=== PATIENT | female | born 1955 | race Caucasian/White ===

== ENCOUNTER 2016-11-24 14:52 | Observation (INO) | payer BC ==
[~2016-11-24] VITALS: Ht 152.4 cm; Wt 74.4 kg
[~2016-11-24 14:52] MED LIST: ACTIGALL300 MG PO; BUSPAR7.5 MG PO; CEPHALEXIN250 MG PO; EFFEXOR37.5 MG PO; ERGOCALCIF50000 UNIT PO; EXFORGE 10/31 TABLET PO; NORVASC10 MG PO; TRICOR145 MG PO
[2016-11-24 15:52] LABS: HEMATOCRIT 36.7 % (36.0-46.0); MCH 28.2 PG (29.0-34.0); MCHC 31.6 G/DL (30.0-36.0); MCV 89.3 FL (83-99); MEAN PLAT.VOLUME 10.4 uM^3 (9.5-12.4); PLATELET COUNT 268 K/uL (156-360); RBC DIS.WIDTH-CV 15.6 % (11.8-14.6); RBC DIS.WIDTH-SD 51.2 % (39-53); RED BLOOD COUNT 4.11 M/uL (3.80-5.20); WHITE BLOOD COUNT 8.1 K/uL (4.1-10.2)
[2016-11-24 16:04] LABS: CHLORIDE 107 mEq/L (99-109); POTASSIUM 3.3 mEq/L (3.7-5.4); SODIUM 142 mEq/L (136-147)
[2016-11-24 16:06] LABS: GLUCOSE 95 mg/dL (70-99)
[2016-11-24 16:07] LABS: ANION GAP 11 MEQ/L (2-14)
[2016-11-24 16:10] LABS: GFR ESTIMATE (CALCULATED) > 59 mL/min/
[2016-11-24 16:11] LABS: UREA NITROGEN (BUN) 16 mg/dL (9-23)
[2016-11-24 16:16] LABS: TROP-I INTERPRETATION NEGATIVE; TROPONIN-I < 0.01 ng/mL (0.0-0.30)
[2016-11-24 16:43] LABS: D-DIMER ELISA 1.51 mg/L FEU (< 0.57)
[2016-11-24] MEDS ORDERED: LORAZEPAM0.5 MG PO (20:03)
[2016-11-24] MEDS ORDERED: RANITIDINE HCL150 MG PO (20:04)
[2016-11-24] MEDS ORDERED: WELLBUTRIN75 MG PO (20:04)
[2016-11-24 20:59] LABS: INFLUENZA A VIRAL ANTIGEN NEGATIVE; INFLUENZA B VIRAL ANTIGEN NEGATIVE
[2016-11-25 00:31] VITALS: BP 137/66
[2016-11-25 01:14] LABS: TROP-I INTERPRETATION NEGATIVE; TROPONIN-I < 0.01 ng/mL (0.0-0.30)
[2016-11-25 04:09] VITALS: BP 123/62
[2016-11-25 08:08] LABS: HEMATOCRIT 30.2 % (36.0-46.0); MCH 28.4 PG (29.0-34.0); MCHC 31.5 G/DL (30.0-36.0); MCV 90.4 FL (83-99); MEAN PLAT.VOLUME 10.7 uM^3 (9.5-12.4); PLATELET COUNT 224 K/uL (156-360); RBC DIS.WIDTH-CV 15.7 % (11.8-14.6); RBC DIS.WIDTH-SD 51.9 % (39-53); RED BLOOD COUNT 3.34 M/uL (3.80-5.20); WHITE BLOOD COUNT 5.9 K/uL (4.1-10.2)
[2016-11-25 08:13] LABS: ANION GAP 8 MEQ/L (2-14); CHLORIDE 105 MEQ/L (99-109); GFR ESTIMATE (CALCULATED) > 59 mL/min/; GLUCOSE 93 mg/dL (70-99); POTASSIUM 3.7 MEQ/L (3.7-5.4); SAMPLE HEMOLYSIS CHECK 0; SAMPLE ICTERIC CHECK 0; SAMPLE LIPEMIA CHECK 0; SODIUM 139 MEQ/L (136-147); TROP-I INTERPRETATION NEGATIVE; TROPONIN-I 0.01 ng/mL (0.0-0.30); UREA NITROGEN (BUN) 14 mg/dL (9-23)
[2016-11-25 08:45] VITALS: BP 127/59
[2016-11-25 11:22] LABS: ALKALINE PHOSPHATASE 219 IU/L (3-129); DIRECT BILIRUBIN 0.3 mg/dL (0.0-0.3); TOTAL BILIRUBIN 0.7 MG/DL (0.0-1.0)
[2016-11-25] MEDS ORDERED: ASPIR-LOW81 MG PO (11:31)
[2016-11-25 11:36] VITALS: BP 154/70
== END 2016-11-25 14:10 | disposition home or self-care (01) ==
LOC: EME 14:52 → EDOF 22:40 → 5WEST 22:40
PROVIDERS: Emergency Medicine; Hospitalist
DX: R07.2 Precordial pain (principal); R94.31 Abnormal electrocardiogram [ECG] [EKG]; C50.919 Malignant neoplasm of unspecified site of unspecified female breast; K74.3 Primary biliary cirrhosis; I10 Essential (primary) hypertension; E78.5 Hyperlipidemia, unspecified; K21.9 Gastro-esophageal reflux disease without esophagitis
CPT/HCPCS: 70470; 71020; 71275; 80048; 80076; 83605; 84484; 85027; 85379; 87040; 87502; 93005; 99281; 99285; G0378; J2270; J2405; J7030

== ENCOUNTER 2017-07-01 11:23 | Day surgery (SDC) | payer BC ==
[~2017-07-01] VITALS: Ht 152.4 cm; Wt 72.7 kg
[~2017-07-01 11:23] MED LIST changes: +ASPIR-LOW81 MG PO; +LORAZEPAM0.5 MG PO; +RANITIDINE HCL150 MG PO; +WELLBUTRIN75 MG PO
[2017-07-01] MEDS ORDERED: FEMARA2.5 MG PO (12:02)
[2017-07-01] MEDS ORDERED: AUGMENTIN875 MG PO ×2 (12:04→14:29)
[2017-07-01 12:05] VITALS: BP 151/76
[2017-07-01 12:31] LABS: HEMATOCRIT 36.1 % (36.0-46.0); MCH 26.6 PG (29.0-34.0); MCHC 31.9 G/DL (30.0-36.0); MCV 83.4 FL (83-99); MEAN PLAT.VOLUME 9.9 uM^3 (9.5-12.4); PLATELET COUNT 415 K/uL (156-360); RBC DIS.WIDTH-CV 13.1 % (11.8-14.6); RBC DIS.WIDTH-SD 39.8 % (39-53); RED BLOOD COUNT 4.33 M/uL (3.80-5.20); WHITE BLOOD COUNT 4.8 K/uL (4.1-10.2)
[2017-07-01 12:44] LABS: PROTHROMBIN TIME 11.7 SEC (10.2-12.9)
[2017-07-01 12:48] LABS: PTT 28.9 SEC (25-37)
[2017-07-01] MEDS ORDERED: ENDOCET 5-3251 EACH PO (14:29)
[2017-07-01 15:54] VITALS: BP 155/70
[2017-07-01 16:51] VITALS: BP 134/63
[2017-07-01 17:40] VITALS: BP 125/60
== END 2017-07-01 18:00 | disposition home or self-care (01) ==
LOC: SDC 11:23
PROVIDERS: Surgery
DX: N61.1 Abscess of the breast and nipple (principal); I10 Essential (primary) hypertension; K21.9 Gastro-esophageal reflux disease without esophagitis; F41.8 Other specified anxiety disorders; Z88.2 Allergy status to sulfonamides
CPT/HCPCS: 85027; 85610; 85730; 87070; 87075; 87205; 88305; 93005; J0131; J0690; J1170; J2250; J2405; J3010; S0020

== ENCOUNTER 2018-01-22 16:46 | Inpatient (IN) | payer BC ==
[~2018-01-22 16:46] MED LIST changes: +AUGMENTIN875 MG PO; +EFFEXOR XR150 MG PO; -EFFEXOR37.5 MG PO; +ENDOCET 5-3251 EACH PO; -EXFORGE 10/31 TABLET PO; +EXFORGE 5/161 TABLET PO; +FEMARA2.5 MG PO
[2018-01-22 18:01] LABS: BASOPHIL (%) 0.7 % (0-1); BASOPHIL COUNT 0.1 K/uL (0-0.1); EOSINOPHIL (%) 3.3 % (0-5); EOSINOPHIL COUNT 0.3 K/uL (0-0.3); HEMOGLOBIN 12.8 G/DL (11.9-15.5); IMMATURE GRANULOCYTE (%) 0.6 % (0.0-0.7); LYMPHOCYTE (%) 15.5 % (15-42); LYMPHOCYTE COUNT 1.5 K/uL (1.0-2.8); MCH 26.8 PG (29.0-34.0); MCHC 32.8 G/DL (30.0-36.0); MCV 81.6 FL (83-99); MONOCYTE (%) 7.4 % (3-12); MONOCYTE COUNT 0.7 K/uL (0-0.8); NEUTROPHIL (%) 72.5 % (45-76); NEUTROPHIL COUNT 7.1 K/uL (1.8-6.4); PLATELET COUNT 285 K/uL (156-360); RBC DIS.WIDTH-CV 12.7 % (11.8-14.6); RBC DIS.WIDTH-SD 38.1 % (39-53); RED BLOOD COUNT 4.78 M/uL (3.80-5.20); WHITE BLOOD COUNT 9.8 K/uL (4.1-10.2)
[2018-01-22 18:12] LABS: ALBUMIN 4.5 g/dL (3.2-4.8); CHLORIDE 103 mEq/L (99-109); POTASSIUM 3.6 mEq/L (3.7-5.4); SODIUM 139 mEq/L (136-147)
[2018-01-22 18:14] LABS: GLUCOSE 101 mg/dL (70-99); TOTAL PROTEIN 8.1 g/dL (6.4-8.3)
[2018-01-22 18:16] LABS: TOTAL BILIRUBIN 0.5 mg/dL (0.0-1.0)
[2018-01-22 18:18] LABS: ALKALINE PHOSPHATASE 181 IU/L (3-129); CREATININE 0.8 mg/dL (0.6-1.3); GFR ESTIMATE (CALCULATED) > 59 mL/min/
[2018-01-22 18:19] LABS: AST (GOT) 42 IU/L (2-34); UREA NITROGEN (BUN) 16 mg/dL (9-23)
[2018-01-22 18:21] LABS: ALT (GPT) 57 IU/L (3-49)
[2018-01-22 18:29] LABS: APPEARANCE SL.HAZY ((CLEAR)); BILIRUBIN NEGATIVE; BLOOD NEGATIVE; COLOR YELLOW ((YELLOW)); GLUCOSE (STRIP) NEGATIVE; KETONES NEGATIVE; LEUKOCYTES NEGATIVE; NITRITE NEGATIVE; PROTEIN (STRIP) NEGATIVE; SPECIFIC GRAVITY 1.012 (1.000-1.030); UROBILINOGEN 0.2 MG/DL (0.2-1.0)
[2018-01-22 18:35] LABS: BACTERIA RARE /HPF; EPITHELIAL CELLS NONE SEEN /HPF; MUCUS NONE SEEN /LPF; RED BLOOD CELLS 0-5 /HPF (0-5); UCUL ADDED? NO; WHITE BLOOD CELLS 0-5 /HPF (0-5)
[2018-01-22 23:29] VITALS: BP 127/59
[2018-01-23 06:44] LABS: BASOPHIL (%) 0.6 % (0-1); BASOPHIL COUNT 0.1 K/uL (0-0.1); EOSINOPHIL (%) 0.8 % (0-5); EOSINOPHIL COUNT 0.1 K/uL (0-0.3); HEMOGLOBIN 10.8 G/DL (11.9-15.5); IMMATURE GRANULOCYTE (%) 0.4 % (0.0-0.7); LYMPHOCYTE (%) 18.7 % (15-42); LYMPHOCYTE COUNT 1.8 K/uL (1.0-2.8); MCH 26.3 PG (29.0-34.0); MCHC 31.8 G/DL (30.0-36.0); MCV 82.9 FL (83-99); MONOCYTE (%) 7.1 % (3-12); MONOCYTE COUNT 0.7 K/uL (0-0.8); NEUTROPHIL (%) 72.4 % (45-76); NEUTROPHIL COUNT 7.1 K/uL (1.8-6.4); PLATELET COUNT 216 K/uL (156-360); RBC DIS.WIDTH-CV 13.1 % (11.8-14.6); RBC DIS.WIDTH-SD 39.7 % (39-53); WHITE BLOOD COUNT 9.8 K/uL (4.1-10.2)
[2018-01-23 06:57] LABS: CHLORIDE 118 MEQ/L (99-109); CREATININE 0.4 MG/DL (0.6-1.3); GFR ESTIMATE (CALCULATED) > 59 mL/min/; GLUCOSE 87 mg/dL (70-99); SODIUM 144 MEQ/L (136-147); UREA NITROGEN (BUN) 11 mg/dL (9-23)
[2018-01-23 07:14] VITALS: BP 134/63
[2018-01-23 08:07] LABS: ALBUMIN 2.8 G/DL (3.2-4.8)
[2018-01-23 09:23] LABS: MAGNESIUM 1.6 mg/dl (1.3-2.7); PHOSPHORUS 2.2 mg/dL (2.5-4.9)
[2018-01-23 11:48] VITALS: BP 129/68
[2018-01-23 16:31] VITALS: BP 141/65
[2018-01-23 20:09] VITALS: BP 166/77
[2018-01-24 00:26] VITALS: BP 134/70
[2018-01-24 04:14] VITALS: BP 145/75
[2018-01-24 06:04] LABS: HEMATOCRIT 35.7 % (36.0-46.0); HEMOGLOBIN 11.2 G/DL (11.9-15.5); MCH 25.9 PG (29.0-34.0); MCHC 31.4 G/DL (30.0-36.0); MCV 82.6 FL (83-99); PLATELET COUNT 242 K/uL (156-360); RBC DIS.WIDTH-CV 12.9 % (11.8-14.6); RBC DIS.WIDTH-SD 39.2 % (39-53); RED BLOOD COUNT 4.32 M/uL (3.80-5.20); WHITE BLOOD COUNT 6.3 K/uL (4.1-10.2)
[2018-01-24 06:22] LABS: CHLORIDE 108 MEQ/L (99-109); CREATININE 0.6 MG/DL (0.6-1.3); GFR ESTIMATE (CALCULATED) > 59 mL/min/; GLUCOSE 98 mg/dL (70-99); SODIUM 141 MEQ/L (136-147); UREA NITROGEN (BUN) 8 mg/dL (9-23)
[2018-01-24 06:26] LABS: POTASSIUM 4.3 MEQ/L (3.7-5.4)
[2018-01-24 07:11] VITALS: BP 130/60
[2018-01-24 11:22] VITALS: BP 131/80
[2018-01-24 16:22] VITALS: BP 134/73
[2018-01-24 19:56] VITALS: BP 141/67
[2018-01-25 00:27] VITALS: BP 137/65
[2018-01-25 03:49] VITALS: BP 124/70
[2018-01-25 07:42] VITALS: BP 132/75
[2018-01-25 09:28] LABS: HEMATOCRIT 38.9 % (36.0-46.0); HEMOGLOBIN 12.3 G/DL (11.9-15.5); MCH 25.7 PG (29.0-34.0); MCHC 31.6 G/DL (30.0-36.0); MCV 81.4 FL (83-99); PLATELET COUNT 308 K/uL (156-360); RBC DIS.WIDTH-CV 12.9 % (11.8-14.6); RBC DIS.WIDTH-SD 38.3 % (39-53); RED BLOOD COUNT 4.78 M/uL (3.80-5.20); WHITE BLOOD COUNT 5.6 K/uL (4.1-10.2)
[2018-01-25 09:51] LABS: CHLORIDE 104 MEQ/L (99-109); CREATININE 0.7 MG/DL (0.6-1.3); GFR ESTIMATE (CALCULATED) > 59 mL/min/; GLUCOSE 101 mg/dL (70-99); POTASSIUM 4.2 MEQ/L (3.7-5.4); SODIUM 140 MEQ/L (136-147); UREA NITROGEN (BUN) 12 mg/dL (9-23)
[2018-01-25 09:53] LABS: MAGNESIUM 1.9 mg/dl (1.3-2.7)
[2018-01-25 16:26] VITALS: BP 142/72
[2018-01-25 23:14] VITALS: BP 124/69
[2018-01-26 07:17] VITALS: BP 109/62
[2018-01-26] MEDS ORDERED: KEFLEX500 MG PO (11:08)
== END 2018-01-26 12:37 | disposition home or self-care (01) | DRG 600 ==
LOC: EME 16:46 → EDOF 21:00 → 5EAST 21:00 → ENRESERV 21:03 → 5EAST 22:37
PROVIDERS: Hospitalist; Nurse Practitioner Family; Physician Assistant
DX: N61.0 Mastitis without abscess (principal); Z85.3 Personal history of malignant neoplasm of breast; Z92.3 Personal history of irradiation; I10 Essential (primary) hypertension; E78.5 Hyperlipidemia, unspecified; Z88.1 Allergy status to other antibiotic agents; Z88.2 Allergy status to sulfonamides; Z91.048 Other nonmedicinal substance allergy status; Z92.21 Personal history of antineoplastic chemotherapy; E66.9 Obesity, unspecified; Z90.49 Acquired absence of other specified parts of digestive tract; R65.10 Systemic inflammatory response syndrome (SIRS) of non-infectious origin without acute organ dysfunction; Y84.2 Radiological procedure and radiotherapy as the cause of abnormal reaction of the patient, or of later complication, without mention of misadventure at the time of the procedure; K74.3 Primary biliary cirrhosis; E87.6 Hypokalemia; E83.51 Hypocalcemia; Z17.0 Estrogen receptor positive status [ER+]; E87.2 Acidosis; L59.8 Other specified disorders of the skin and subcutaneous tissue related to radiation; Z15.01 Genetic susceptibility to malignant neoplasm of breast
CPT/HCPCS: 71046; 80048; 80053; 80202; 81003; 82040; 82330; 83605; 83735; 84100; 85025; 85027; 87040; 87070; 87075; 87076; 87077; 87086; 87186; 87205; 99281; 99285; J0696; J1650; J1885; J2543; J2997; J3370; J7030; J7050

== ENCOUNTER → 2018-03-17 | Outpatient (CLI) | payer BC ==
[~2018-03-17] MED LIST changes: +KEFLEX500 MG PO; +NERLYNX40 MG PO
== END | disposition home or self-care (01) ==
LOC: CDC 15:40
DX: Z01.810 Encounter for preprocedural cardiovascular examination (principal); C50.919 Malignant neoplasm of unspecified site of unspecified female breast; T81.89XA Other complications of procedures, not elsewhere classified, initial encounter; I49.8 Other specified cardiac arrhythmias; R94.31 Abnormal electrocardiogram [ECG] [EKG]
CPT/HCPCS: 93000

== ENCOUNTER 2018-03-22 06:17 | Day surgery (SDC) | payer BC ==
[~2018-03-22] VITALS: Ht 152.4 cm; Wt 73.9 kg
[2018-03-22 07:24] VITALS: BP 148/74
[2018-03-22] MEDS ORDERED: HYDROCODON-ACE1 EAC7 PO (08:49)
[2018-03-22 10:17] VITALS: BP 160/71
[2018-03-22 11:31] VITALS: BP 113/57
== END 2018-03-22 11:45 | disposition home or self-care (01) ==
LOC: SDC
PROC: 0HBT0ZX Excision of Right Breast, Open Approach, Diagnostic (ICD-10-PCS; principal; 2018-03-22)
DX: T81.89XA Other complications of procedures, not elsewhere classified, initial encounter (principal); C50.911 Malignant neoplasm of unspecified site of right female breast; Z17.0 Estrogen receptor positive status [ER+]; I10 Essential (primary) hypertension; K21.9 Gastro-esophageal reflux disease without esophagitis; Z88.2 Allergy status to sulfonamides; Z91.040 Latex allergy status; Z80.3 Family history of malignant neoplasm of breast
CPT/HCPCS: 88304; J0330; J0690; J1100; J1170; J2250; J2405; J3010; J7120; Q0175; S0020

== ENCOUNTER → 2018-04-16 | Outpatient (CLI) | payer BC ==
[~2018-04-16] MED LIST changes: +HYDROCODON-ACE1 EAC7 PO
== END | disposition home or self-care (01) ==
LOC: AMB 09:26
PROC: 0JPT0WZ Removal of Totally Implantable Vascular Access Device from Trunk Subcutaneous Tissue and Fascia, Open Approach (ICD-10-PCS; principal; 2018-04-16)
DX: Z45.2 Encounter for adjustment and management of vascular access device (principal); Z92.21 Personal history of antineoplastic chemotherapy; I87.8 Other specified disorders of veins